=== PATIENT | female | born 1990 | race Caucasian/White ===

== ENCOUNTER 2020-01-04 14:24 | Emergency (ER) | payer MEDICAID ==
[~2020-01-04] VITALS: Ht 162.6 cm; Wt 99.0 kg
[2020-01-04] MEDS ORDERED: SODIUM CHLORIDE 0.9% 1,000 ML IV ONE (15:12)
[2020-01-04] MEDS ORDERED: ACETAMINOPHEN 500MG TABLET PO ONE (15:15)
[2020-01-04] MEDS ORDERED: PROCHLORPERAZINE 10MG/2ML VIAL IM ONE (15:15)
[2020-01-04 15:28] LABS: BASOPHILS % 0.3 % (0.0-2.0); EOSINOPHILS % 0.4 % (0.0-5.0); HEMATOCRIT. 39.9 % (36.0-48.0); HEMOGLOBIN. 13.7 g/dL (12.0-16.0); LYMPHOCYTES % 26.1 % (20.0-50.0); MEAN CORPUSCULAR HEMOGLOBIN 29.7 pg (28.0-32.0); MEAN CORPUSCULAR VOLUME 86.3 fL (81.0-99.0); MONOCYTES % 7.7 % (2.0-8.0); NEUTROPHILS % 65.5 % (40.0-76.0); PLATELET 265 x1000/uL (130-400); RED BLOOD CELL COUNT 4.62 mill/uL (4.2-5.4); RED CELL DISTRIBUTION WIDTH 13.9 % (11.6-14.6)
[2020-01-04 15:33] LABS: CHLORIDE 107 mEq/L (98-107)
[2020-01-04 15:58] LABS: B-HCG QUANTITATIVE 144632 mIU/mL (<3)
[2020-01-04 16:43] LABS: CLARITY URINE CLOUDY (CLEAR); COLOR URINE DARK YELLOW (YELLOW); KETONES URINE 2+ (NEGATIVE); LEUKOCYTE ESTERASE URINE 2+ (NEGATIVE); NITRITE URINE NEGATIVE (NEGATIVE); OCCULT BLOOD URINE NEGATIVE (NEGATIVE); PH URINE 5.5 (4.5-8.0); PROTEIN URINE 1+ (NEGATIVE); SPECIFIC GRAVITY URINE 1.036 (1.005-1.030)
[2020-01-04 18:33] VITALS: BP 129/60
== END 2020-01-04 19:14 | disposition home or self-care (01) ==
LOC: ER 14:55
DX: O21.9 Vomiting of pregnancy, unspecified (principal); O23.31 Infections of other parts of urinary tract in pregnancy, first trimester; Z3A.08 8 weeks gestation of pregnancy
CPT/HCPCS: 36415; 76801; 76817; 80053; 81003; 83690; 84702; 85025; 87086; 96360; 96361; 96372; 99284; J0780; J7030